=== PATIENT | male | born 1985 | race Caucasian/White ===

== ENCOUNTER 2016-08-12 12:27 | Inpatient (IN) | payer OTHER ==
[2016-08-12 13:42] VITALS: BMI 22.6
--- NOTE | 2016-08-12 16:27 | HP ---
CIWA Score - CIWA Score Nausea/Vomitin-No Nausea/No Vomiting Muscle Tremors: 4-Moderate,w/Arms Extend Anxiety: 4-Mod. Anxious/Guarded Agitation: 4-Moderately Restless Paroxysmal Sweats: 2 Orientation: 1-Uncertain about Date Tacttile Disturbances: 0-None Auditory Disturbances: 0-None Visual Disturbances: 0-None Headache: 3-Moderate CIWA-Ar Total Score: 18 Admission ROS S - HPI Chief Complaint: withdrawal sx Allergies/Adverse Reactions: Allergies Allergy/AdvReac Type Severity Reaction Status Date / Time No Known Allergies Allergy Verified 08/12/16 14:55 History of Present Illness: 31 years old male with long history of alcohol nicotine dependence, has diabetes ii, seizure = last episode 08/11/16 treated at [facility] er , pancreatitis last episode 2015, blurred vision both related to diabetes ii, neuropathy both legs related to diabetes, upper teeth bridge, denies mental illness is admitted to detox Exam Limitations: No Limitations - Ebola screening Have you traveled outside of the country in the last 21 days: No Have you had contact with anyone from an Ebola affected area: No Have you been sick,other than usual withdrawal symptoms: No Do you have a fever: No - Review of Systems Constitutional: Chills, Loss of Appetite, Changes in sleep, Unexplained wgt Loss EENT: reports: Blurred Vision (related to diabetes ii), Dental Problems (upper bridge) Respiratory: reports: No Symptoms reported Cardiac: reports: Palpitations GI: reports: Nausea, Poor Appetite, Poor Fluid Intake, Abdominal cramping : reports: No Symptoms Reported Musculoskeletal: reports: Joint Pain, Muscle Pain Integumentary: reports: No Symptoms Reported Neuro: reports: Seizure, Tremors Endocrine: reports: No Symptoms Reported Hematology: reports: No Symptoms Reported Psychiatric: reports: Judgement Intact, Mood/Affect Appropiate Other Systems: Reviewed and Negative Patient History - Patient Medical History Hx Anemia: No Hx Asthma: No Hx Chronic Obstructive Pulmonary Disease (COPD): No Hx Cancer: No Hx Cardiac Disorders: No Hx Congestive Heart Failure: No Hx Hypertension: No Hx Hypercholesterolemia: No Hx Pacemaker: No HX Cerebrovascular Accident: No Hx Seizures: Yes (alcohol related-last episode was yesterday, 08/11/2015) Hx Dementia: No Hx Diabetes: Yes (currently not on treatment) Hx Gastrointestinal Disorders: No Hx Liver Disease: No Hx Genitourinary Disorders: No Hx Sexually Transmitted Disorders: No Hx Renal Disease (ESRD): No Hx Thyroid Disease: No Hx Human Immunodeficiency Virus (HIV): No Hx Hepatitis C: No Hx Depression: No Hx Suicide Attempt: No Hx Bipolar Disorder: No Hx Schizophrenia: No - Patient Surgical History Past Surgical History: No Hx Neurologic Surgery: No Hx Cataract Extraction: No Hx Cardiac Surgery: No Hx Lung Surgery: No Hx Breast Surgery: No Hx Breast Biopsy: No Hx Abdominal Surgery: No Hx Appendectomy: No Hx Cholecystectomy: No Hx Genitourinary Surgery: No Hx Orthopedic Surgery: No - PPD History Previous Implant?: Yes Documented Results: Negative w/o proof Implanted On Prior [facility] Admission?: No PPD to be Administered?: Yes - Smoking Cessation Smoking history: Current every day smoker Have you smoked in the past 12 months: Yes Aproximately how many cigarettes per day: 5 Hx Chewing Tobacco Use: No Initiated information on smoking cessation: Yes 'Breaking Loose' booklet given: 08/12/16 - Substance & Tx. History Hx Alcohol Use: Yes Hx Substance Use: No Substance Use Type: Alcohol Hx Substance Use Treatment: Yes - Substances Abused Alcohol-beer Route: Oral Frequency: Daily Amount used: 1 case Age of first use: 12 Date of Last Use: 08/11/16 Family Disease History - Family Disease History Family Disease History: CA: Father (throat ) Admission Physical Exam S - Vital Signs Vital Signs: Vital Signs - 24 hr 08/12/16 13:41 Temperature 98.2 F Pulse Rate 99 H Respiratory 18 Rate Blood Pressure 114/96 - Physical General Appearance: Yes: Appropriately Dressed, Moderate Distress, Alcohol on Breath, Thin, Tremorous, Irritable, Sweating, Anxious HEENTM: Yes: Hearing grossly Normal, Normal ENT Inspection, Normocephalic, Normal Voice Respiratory: Yes: Chest Non-Tender, Lungs Clear, Normal Breath Sounds, No Respiratory Distress, No Accessory Muscle Use Neck: Yes: Supple, Trachea in good position Breast: Yes: Breasts Symetrical Cardiology: Yes: Regular Rhythm, S1, S2, Tachycardia Abdominal: Yes: Non Tender, Soft Genitourinary: Yes: Within Normal Limits Back: Yes: Normal Inspection Musculoskeletal: Yes: full range of Motion, Gait Steady, Muscle Pain Extremities: Yes: Normal Range of Motion, Non-Tender, Tremors Neurological: Yes: Alert, Motor Strength 5/5, Normal Mood/Affect, Disoriented ( to time) Integumentary: Yes: Warm, Clammy Lymphatic: Yes: Within Normal Limits - Diagnostic (1) Seizure Current Visit: Yes Status: Chronic Qualifiers: Convulsion type: unspecified Qualified Code(s): R56.9 - Unspecified convulsions Comment: since child, no oral medication, no treatment, last episode 08/11/16 treated at [facility], released for alcohol detox (2) Alcohol dependence with uncomplicated withdrawal Current Visit: Yes Status: Acute (3) Nicotine dependence Current Visit: Yes Status: Acute Qualifiers: Nicotine product type: cigarettes Substance use status: in withdrawal Qualified Code(s): F17.213 - Nicotine dependence, cigarettes, with withdrawal (4) Diabetes mellitus, type II, insulin dependent Current Visit: Yes Status: Chronic Comment: since 2014, treated with unknown name nor dosage of insulin, last dose "long time ago" (5) Pancreatitis, chronic Current Visit: Yes Status: Chronic Qualifiers: Pancreatitis type: other Qualified Code(s): K86.1 - Other chronic pancreatitis Comment: alcohol induced, last episode 2016 (6) Weight loss Current Visit: Yes Status: Acute Comment: glucerna Cleared for Admission [facility] - Detox or Rehab [facility] Level of Care: Medically Managed Detox Regimen/Protocol: Librium [facility] Breath Alcohol Content Breath Alcohol Content: 0.124 Urine Drug Screen - Results Drug Screen Negative: Yes
[2016-08-12] MEDS ORDERED: MAG HYDROX/AL HYDROX/SIMETH 30 ML UNIT-DOSE CUP PO PRN (16:31)
[2016-08-12] MEDS ORDERED: NICOTINE POLACRILEX 2 MG GUM BUC PRN (16:31)
[2016-08-12] MEDS ORDERED: MENTHOL/PHENOL 1 EACH UD MM PRN (16:31)
[2016-08-12] MEDS ORDERED: P-EPHED 60MG/TRIPROLIDI 2.5MG TABLET PO PRN (16:31)
[2016-08-12] MEDS ORDERED: IBUPROFEN 400 MG TABLET (FP) PO PRN (16:31)
[2016-08-12] MEDS ORDERED: chlordiazePOXIDE HCL 25 MG CAPSULE PO PRN (16:31)
[2016-08-12] MEDS ORDERED: hydrOXYzine PAMOATE 50 MG CAPSULE (FP) PO PRN (16:31)
[2016-08-12] MEDS ORDERED: guaiFENesin/D-METHORPHAN HB 10 ML UNIT-DOSE CUPS PO PRN (16:31)
[2016-08-12] MEDS ORDERED: ACETAMINOPHEN 325 MG TABLET (FP) PO PRN (16:31)
[2016-08-12] MEDS ORDERED: MAGNESIUM HYDROX 2400MG/30ML ORAL SUSPENSION 30 ML CUP PO PRN (16:31)
[2016-08-12] MEDS ORDERED: MAGNESIUM CITRATE 300 ML BOTTLE PO PRN (16:31)
[2016-08-12] MEDS ORDERED: LOPERAMIDE HCL 2 MG CAPSULE PO PRN (16:31)
[2016-08-12] MEDS ORDERED: chlordiazePOXIDE HCL 25 MG CAPSULE PO ONE (17:30)
[2016-08-12] MEDS ORDERED: INSULIN (NOVOLOG) ASPART 100 UNITS/ML 10ML VIAL ONE (17:47)
[2016-08-12] MEDS: INSULIN SLIDING SCALE (NOVOLOG) 1 VIAL SQ SCH ×2 (17:58→22:42)
[2016-08-12 21:53] LABS: URINE APPEARANCE CLEAR; URINE BILIRUBIN NEGATIVE (NEGATIVE); URINE BLOOD NEGATIVE (NEGATIVE); URINE COLOR LTYELLOW; URINE GLUCOSE (UA) 2+ (NEGATIVE); URINE KETONE 1+ (NEGATIVE); URINE LEUK ESTERASE NEGATIVE (NEGATIVE); URINE NITRITE NEGATIVE (NEGATIVE); URINE PROTEIN NEGATIVE (NEGATIVE); URINE UROBILINOGEN NEGATIVE E.U./dl (0.2-1.0)
[2016-08-12] MEDS: diphenhydrAMINE HCL 50 MG CAPSULE PO PRN (22:08)
[2016-08-12] MEDS: chlordiazePOXIDE HCL 25 MG CAPSULE PO SCH (22:08)
[2016-08-12] MEDS: THIAMINE HCL 100 MG TABLET (FP) PO SCH (22:08)
[2016-08-13] MEDS: chlordiazePOXIDE HCL 25 MG CAPSULE PO SCH ×4 (05:08→22:16)
[2016-08-13] MEDS ORDERED: INSULIN (NOVOLOG) ASPART 100 UNITS/ML 10ML VIAL ONE ×4 (08:55→22:15)
[2016-08-13] MEDS: INSULIN SLIDING SCALE (NOVOLOG) 1 VIAL SQ SCH ×4 (09:01→22:16)
[2016-08-13 09:31] LABS: MCH 34.1 pg (25.7-33.7); MCHC 33.7 g/dl (32.0-35.9); MEAN CELL VOLUME 101.3 fl (80-96); MEAN PLT VOLUME 9.1 fl (7.5-11.1); PLATELET COUNT 93 K/MM3 (134-434); RDW 15.7 % (11.9-15.9); WHITE BLOOD COUNT 3.1 K/mm3 (4.0-10.0)
[2016-08-13 09:58] LABS: ALBUMIN 3.9 g/dl (3.4-5.0); ALK PHOS 146 U/L (45-117); ANION GAP 15 (8-16); BILIRUBIN,TOTAL 0.6 mg/dL (0.2-1.0); CO2 23 mmol/L (21-32); CREATININE 0.6 mg/dL (0.7-1.3); GLUCOSE,RANDOM 235 mg/dL (74-106); SGOT/AST 237 U/L (15-37); SGPT/ALT 155 U/L (12-78); TOT PROT 7.1 g/dl (6.4-8.2)
--- NOTE | 2016-08-13 10:38 | EKG ---
Test Reason : Blood Pressure : / mmHG Vent. Rate : 080 BPM Atrial Rate : 080 BPM P-R Int : 176 ms QRS Dur : 114 ms QT Int : 402 ms P-R-T Axes : 064 075 047 degrees QTc Int : 463 ms NORMAL SINUS RHYTHM NORMAL ECG NO PREVIOUS ECGS AVAILABLE Confirmed by MARGARET OTERO MD ([id number]) on 08/13/2016 10:38:15 AM Referred By: J Carlos Sin Confirmed By:MARGARET OTERO MD
[2016-08-13] MEDS: NICOTINE 14 MG/24 HOURS TOPICAL PATCH TD SCH (10:58)
[2016-08-13] MEDS: PRENATAL VITAMINS W/ FOLIC ACID TABLET (FP) PO SCH (10:58)
[2016-08-13 12:09] LABS: HIV 1 & 2 AB NEGATIVE; HIV 1 AGp24 NEGATIVE
--- NOTE | 2016-08-13 13:04 | PN ---
[facility] CIWA - CIWA Score Nausea/Vomitin-No Nausea/No Vomiting Muscle Tremors: 4-Moderate,w/Arms Extend Anxiety: 4-Mod. Anxious/Guarded Agitation: 4-Moderately Restless Paroxysmal Sweats: 3 Orientation: 0-Oriented Tacttile Disturbances: 0-None Auditory Disturbances: 0-None Visual Disturbances: 0-None Headache: 0-None Present CIWA-Ar Total Score: 15 B[facility] Progress Note (SOAP) Subjective: shakes sweats interrupted sleep agitation Objective: 08/13/16 13:02 Vital Signs Temperature 98.1 F 08/13/16 10:05 Pulse Rate 123 H 08/13/16 10:05 Respiratory Rate 16 08/13/16 10:05 Blood Pressure 126/85 08/13/16 10:05 O2 Sat by Pulse Oximetry (%) Laboratory Tests 08/12/16 08/12/16 08/12/16 06:30 20:30 22:03 WBC RBC Hgb Hct MCV MCHC RDW Plt Count MPV Sodium Potassium Chloride Carbon Dioxide Anion Gap BUN Creatinine Creat Clearance w eGFR POC Glucometer 104 Random Glucose Calcium Total Bilirubin AST ALT Alkaline Phosphatase Total Protein Albumin Urine Color Ltyellow Urine Appearance Clear Urine pH 6.0 Ur Specific [place] 1.011 Urine Protein Negative Urine Glucose (UA) 2+ H Urine Ketones 1+ H Urine Blood Negative Urine Nitrite Negative Urine Bilirubin Negative Urine Urobilinogen Negative Ur Leukocyte Esterase Negative HIV 1&2 Antibody Screen Negative HIV P24 Antigen Negative 08/13/16 08/13/16 08/13/16 05:30 05:30 06:45 WBC 3.1 L D RBC 3.91 L Hgb 13.4 D Hct 39.6 MCV 101.3 H MCHC 33.7 RDW 15.7 D Plt Count 93 L D MPV 9.1 D Sodium 135 L Potassium 3.6 Chloride 97 L Carbon Dioxide 23 Anion Gap 15 BUN 4 L D Creatinine 0.6 L D Creat Clearance w eGFR > 60 POC Glucometer 239 Random Glucose 235 H D Calcium 8.0 L Total Bilirubin 0.6 AST 237 H D ALT 155 H D Alkaline Phosphatase 146 H Total Protein 7.1 Albumin 3.9 Urine Color Urine Appearance Urine pH Ur Specific [place] Urine Protein Urine Glucose (UA) Urine Ketones Urine Blood Urine Nitrite Urine Bilirubin Urine Urobilinogen Ur Leukocyte Esterase HIV 1&2 Antibody Screen HIV P24 Antigen 08/13/16 11:01 WBC RBC Hgb Hct MCV MCHC RDW Plt Count MPV Sodium Potassium Chloride Carbon Dioxide Anion Gap BUN Creatinine Creat Clearance w eGFR POC Glucometer 295 Random Glucose Calcium Total Bilirubin AST ALT Alkaline Phosphatase Total Protein Albumin Urine Color Urine Appearance Urine pH Ur Specific [place] Urine Protein Urine Glucose (UA) Urine Ketones Urine Blood Urine Nitrite Urine Bilirubin Urine Urobilinogen Ur Leukocyte Esterase HIV 1&2 Antibody Screen HIV P24 Antigen awake/alert ambulating no acute distress Assessment: 08/13/16 13:03 withdrawal sx Plan: continue detox increase fluids
[2016-08-13] MEDS: cloNIDine HCL 0.1 MG TABLET PO SCH (22:15)
[2016-08-13] MEDS: THIAMINE HCL 100 MG TABLET (FP) PO SCH (22:15)
[2016-08-13] MEDS: diphenhydrAMINE HCL 50 MG CAPSULE PO PRN (22:16)
[2016-08-14] MEDS: chlordiazePOXIDE HCL 25 MG CAPSULE PO SCH ×3 (05:29→17:14)
[2016-08-14] MEDS: INSULIN SLIDING SCALE (NOVOLOG) 1 VIAL SQ SCH ×4 (07:57→22:18)
[2016-08-14] MEDS: NICOTINE 14 MG/24 HOURS TOPICAL PATCH TD SCH (10:16)
[2016-08-14] MEDS: cloNIDine HCL 0.1 MG TABLET PO SCH ×2 (10:16→22:13)
[2016-08-14] MEDS: PRENATAL VITAMINS W/ FOLIC ACID TABLET (FP) PO SCH (10:16)
--- NOTE | 2016-08-14 11:21 | PN ---
S CIWA - CIWA Score Nausea/Vomitin Muscle Tremors: 3 Anxiety: 3 Agitation: 3 Paroxysmal Sweats: 1-Minimal Palms Moist Orientation: 0-Oriented Tacttile Disturbances: 1-Very Mild Itch/Numbness Auditory Disturbances: 1-Very Mild Visual Disturbances: 1-Very Mild Sensitivity Headache: 2-Mild CIWA-Ar Total Score: 18 BHS Progress Note (SOAP) Subjective: ALERT,IRRITABLE,ANXIOUS,TREMOR,PAIN IN THE BODY Objective: 08/14/16 11:19 Vital Signs Temperature 97.2 F L 08/14/16 10:27 Pulse Rate 123 H 08/14/16 10:27 Respiratory Rate 16 08/14/16 10:27 Blood Pressure 99/66 08/14/16 10:27 O2 Sat by Pulse Oximetry (%) EKG NSR,NORMAL ECG Laboratory Last Values WBC 3.1 K/mm3 (4.0-10.0) L D 08/13/16 05:30 RBC 3.91 M/mm3 (4.00-5.60) L 08/13/16 05:30 Hgb 13.4 GM/dL (11.7-16.9) D 08/13/16 05:30 Hct 39.6 % (35.4-49) 08/13/16 05:30 MCV 101.3 fl (80-96) H 08/13/16 05:30 MCHC 33.7 g/dl (32.0-35.9) 08/13/16 05:30 RDW 15.7 % (11.9-15.9) D 08/13/16 05:30 Plt Count 93 K/MM3 (134-434) L D 08/13/16 05:30 MPV 9.1 fl (7.5-11.1) D 08/13/16 05:30 Sodium 135 mmol/L (136-145) L 08/13/16 05:30 Potassium 3.6 mmol/L (3.5-5.1) 08/13/16 05:30 Chloride 97 mmol/L (98-107) L 08/13/16 05:30 Carbon Dioxide 23 mmol/L (21-32) 08/13/16 05:30 Anion Gap 15 (8-16) 08/13/16 05:30 BUN 4 mg/dL (7-18) L D 08/13/16 05:30 Creatinine 0.6 mg/dL (0.7-1.3) L D 08/13/16 05:30 Creat Clearance w eGFR > 60 (>60) 08/13/16 05:30 POC Glucometer 126 UNITS (()) 08/14/16 05:28 Random Glucose 235 mg/dL (74-106) H D 08/13/16 05:30 Calcium 8.0 mg/dL (8.5-10.1) L 08/13/16 05:30 Total Bilirubin 0.6 mg/dL (0.2-1.0) 08/13/16 05:30 AST 237 U/L (15-37) H D 08/13/16 05:30 ALT 155 U/L (12-78) H D 08/13/16 05:30 Alkaline Phosphatase 146 U/L (45-117) H 08/13/16 05:30 Total Protein 7.1 g/dl (6.4-8.2) 08/13/16 05:30 Albumin 3.9 g/dl (3.4-5.0) 08/13/16 05:30 Urine Color Ltyellow 08/12/16 20:30 Urine Appearance Clear 08/12/16 20:30 Urine pH 6.0 (5.0-8.0) 08/12/16 20:30 Ur Specific [place] 1.011 (1.001-1.035) 08/12/16 20:30 Urine Protein Negative (NEGATIVE) 08/12/16 20:30 Urine Glucose (UA) 2+ (NEGATIVE) H 08/12/16 20:30 Urine Ketones 1+ (NEGATIVE) H 08/12/16 20:30 Urine Blood Negative (NEGATIVE) 08/12/16 20:30 Urine Nitrite Negative (NEGATIVE) 08/12/16 20:30 Urine Bilirubin Negative (NEGATIVE) 08/12/16 20:30 Urine Urobilinogen Negative E.U./dl (0.2-1.0) 08/12/16 20:30 Ur Leukocyte Esterase Negative (NEGATIVE) 08/12/16 20:30 RPR Titer Nonreactive (NONREACTIVE) 08/13/16 05:30 HIV 1&2 Antibody Screen Negative 08/12/16 06:30 HIV P24 Antigen Negative 08/12/16 06:30 Assessment: 08/14/16 11:20 WITHDRAWAL SYMPTOM Plan: CONTINUE DETOX
[2016-08-14] MEDS ORDERED: INSULIN (NOVOLOG) ASPART 100 UNITS/ML 10ML VIAL ONE ×3 (11:48→22:17)
[2016-08-14] MEDS: chlordiazePOXIDE 5 MG CAPSULE PO SCH (22:13)
[2016-08-14] MEDS: THIAMINE HCL 100 MG TABLET (FP) PO SCH (22:13)
[2016-08-14] MEDS: diphenhydrAMINE HCL 50 MG CAPSULE PO PRN (22:14)
[2016-08-15] MEDS: chlordiazePOXIDE 5 MG CAPSULE PO SCH ×3 (05:46→17:58)
[2016-08-15] MEDS ORDERED: INSULIN (NOVOLOG) ASPART 100 UNITS/ML 10ML VIAL ONE ×4 (08:27→22:41)
[2016-08-15] MEDS: INSULIN SLIDING SCALE (NOVOLOG) 1 VIAL SQ SCH ×4 (08:31→22:43)
--- NOTE | 2016-08-15 10:32 | PN ---
S Progress Note (SOAP) Subjective: ALERT,IRRITABLE,ANXIOUS,INTERRUPTED SLEEP Objective: 08/15/16 10:30 Vital Signs Temperature 98.2 F 08/15/16 09:37 Pulse Rate 111 H 08/15/16 09:37 Respiratory Rate 18 08/15/16 09:37 Blood Pressure 117/66 08/15/16 09:37 O2 Sat by Pulse Oximetry (%) Assessment: 08/15/16 10:31 WITHDRAWAL SYMPTOM Plan: CONTINUE DETOX
[2016-08-15] MEDS: cloNIDine HCL 0.1 MG TABLET PO SCH ×2 (10:38→22:34)
[2016-08-15] MEDS: PRENATAL VITAMINS W/ FOLIC ACID TABLET (FP) PO SCH (10:38)
[2016-08-15] MEDS: NICOTINE 14 MG/24 HOURS TOPICAL PATCH TD SCH (10:39)
[2016-08-15] MEDS: THIAMINE HCL 100 MG TABLET (FP) PO SCH (22:34)
[2016-08-15] MEDS: chlordiazePOXIDE HCL 10 MG CAPSULE PO SCH (22:34)
[2016-08-16] MEDS: chlordiazePOXIDE HCL 10 MG CAPSULE PO SCH ×3 (06:01→17:37)
[2016-08-16] MEDS ORDERED: INSULIN (NOVOLOG) ASPART 100 UNITS/ML 10ML VIAL ONE ×4 (07:44→22:09)
[2016-08-16] MEDS: INSULIN SLIDING SCALE (NOVOLOG) 1 VIAL SQ SCH ×4 (07:46→22:08)
[2016-08-16] MEDS: cloNIDine HCL 0.1 MG TABLET PO SCH ×2 (10:34→22:12)
[2016-08-16] MEDS: PRENATAL VITAMINS W/ FOLIC ACID TABLET (FP) PO SCH (10:34)
[2016-08-16] MEDS: NICOTINE 14 MG/24 HOURS TOPICAL PATCH TD SCH (10:35)
--- NOTE | 2016-08-16 13:12 | PN ---
BHS Progress Note (SOAP) Subjective: sweating,interrupted sleep,restless. Objective: 08/16/16 13:11 Vital Signs - 8 hr 08/16/16 08/16/16 06:55 10:00 Temperature 97.7 F 97.7 F Pulse Rate 65 100 H Respiratory 18 20 Rate Blood Pressure 114/66 96/61 Laboratory Tests 08/12/16 08/12/16 08/12/16 06:30 15:19 20:30 WBC RBC Hgb Hct MCV MCHC RDW Plt Count MPV Sodium Potassium Chloride Carbon Dioxide Anion Gap BUN Creatinine Creat Clearance w eGFR POC Glucometer 274 Random Glucose Calcium Total Bilirubin AST ALT Alkaline Phosphatase Total Protein Albumin Urine Color Ltyellow Urine Appearance Clear Urine pH 6.0 Ur Specific [place] 1.011 Urine Protein Negative Urine Glucose (UA) 2+ H Urine Ketones 1+ H Urine Blood Negative Urine Nitrite Negative Urine Bilirubin Negative Urine Urobilinogen Negative Ur Leukocyte Esterase Negative RPR Titer HIV 1&2 Antibody Screen Negative HIV P24 Antigen Negative 08/12/16 08/13/16 08/13/16 22:03 05:30 05:30 WBC 3.1 L D RBC 3.91 L Hgb 13.4 D Hct 39.6 MCV 101.3 H MCHC 33.7 RDW 15.7 D Plt Count 93 L D MPV 9.1 D Sodium 135 L Potassium 3.6 Chloride 97 L Carbon Dioxide 23 Anion Gap 15 BUN 4 L D Creatinine 0.6 L D Creat Clearance w eGFR > 60 POC Glucometer 104 Random Glucose 235 H D Calcium 8.0 L Total Bilirubin 0.6 AST 237 H D ALT 155 H D Alkaline Phosphatase 146 H Total Protein 7.1 Albumin 3.9 Urine Color Urine Appearance Urine pH Ur Specific [place] Urine Protein Urine Glucose (UA) Urine Ketones Urine Blood Urine Nitrite Urine Bilirubin Urine Urobilinogen Ur Leukocyte Esterase RPR Titer HIV 1&2 Antibody Screen HIV P24 Antigen 08/13/16 08/13/16 08/13/16 05:30 06:45 11:01 WBC RBC Hgb Hct MCV MCHC RDW Plt Count MPV Sodium Potassium Chloride Carbon Dioxide Anion Gap BUN Creatinine Creat Clearance w eGFR POC Glucometer 239 295 Random Glucose Calcium Total Bilirubin AST ALT Alkaline Phosphatase Total Protein Albumin Urine Color Urine Appearance Urine pH Ur Specific [place] Urine Protein Urine Glucose (UA) Urine Ketones Urine Blood Urine Nitrite Urine Bilirubin Urine Urobilinogen Ur Leukocyte Esterase RPR Titer Nonreactive HIV 1&2 Antibody Screen HIV P24 Antigen 08/13/16 08/13/16 08/13/16 16:39 22:07 22:10 WBC RBC Hgb Hct MCV MCHC RDW Plt Count MPV Sodium Potassium Chloride Carbon Dioxide Anion Gap BUN Creatinine Creat Clearance w eGFR POC Glucometer 236 411 417 Random Glucose Calcium Total Bilirubin AST ALT Alkaline Phosphatase Total Protein Albumin Urine Color Urine Appearance Urine pH Ur Specific [place] Urine Protein Urine Glucose (UA) Urine Ketones Urine Blood Urine Nitrite Urine Bilirubin Urine Urobilinogen Ur Leukocyte Esterase RPR Titer HIV 1&2 Antibody Screen HIV P24 Antigen 08/14/16 08/14/16 08/14/16 05:28 11:39 16:29 WBC RBC Hgb Hct MCV MCHC RDW Plt Count MPV Sodium Potassium Chloride Carbon Dioxide Anion Gap BUN Creatinine Creat Clearance w eGFR POC Glucometer 126 431 255 Random Glucose Calcium Total Bilirubin AST ALT Alkaline Phosphatase Total Protein Albumin Urine Color Urine Appearance Urine pH Ur Specific [place] Urine Protein Urine Glucose (UA) Urine Ketones Urine Blood Urine Nitrite Urine Bilirubin Urine Urobilinogen Ur Leukocyte Esterase RPR Titer HIV 1&2 Antibody Screen HIV P24 Antigen 08/14/16 08/15/16 08/15/16 22:08 05:46 11:33 WBC RBC Hgb Hct MCV MCHC RDW Plt Count MPV Sodium Potassium Chloride Carbon Dioxide Anion Gap BUN Creatinine Creat Clearance w eGFR POC Glucometer 330 233 470 Random Glucose Calcium Total Bilirubin AST ALT Alkaline Phosphatase Total Protein Albumin Urine Color Urine Appearance Urine pH Ur Specific [place] Urine Protein Urine Glucose (UA) Urine Ketones Urine Blood Urine Nitrite Urine Bilirubin Urine Urobilinogen Ur Leukocyte Esterase RPR Titer HIV 1&2 Antibody Screen HIV P24 Antigen 08/15/16 08/16/16 16:35 06:03 WBC RBC Hgb Hct MCV MCHC RDW Plt Count MPV Sodium Potassium Chloride Carbon Dioxide Anion Gap BUN Creatinine Creat Clearance w eGFR POC Glucometer 158 278 Random Glucose Calcium Total Bilirubin AST ALT Alkaline Phosphatase Total Protein Albumin Urine Color Urine Appearance Urine pH Ur Specific [place] Urine Protein Urine Glucose (UA) Urine Ketones Urine Blood Urine Nitrite Urine Bilirubin Urine Urobilinogen Ur Leukocyte Esterase RPR Titer HIV 1&2 Antibody Screen HIV P24 Antigen labs noted Assessment: 08/16/16 13:11 Withdrawal sx. Plan: Continue detox
[2016-08-16] MEDS: THIAMINE HCL 100 MG TABLET (FP) PO SCH (22:10)
[2016-08-17 05:49] VITALS: BP 134/78; PULSE 77; TEMP 97.3
[2016-08-17] MEDS ORDERED: INSULIN (NOVOLOG) ASPART 100 UNITS/ML 10ML VIAL ONE (07:33)
[2016-08-17] MEDS: INSULIN SLIDING SCALE (NOVOLOG) 1 VIAL SQ SCH (07:45)
--- NOTE | 2016-08-17 09:04 | DS ---
[facility] Detox Discharge Summary Admission Date: 08/12/16 Discharge Date: 08/17/16 - History Present History: Alcohol Dependence - Physical Exam Results Vital Signs: Vital Signs Temperature 97.3 F L 08/17/16 05:48 Pulse Rate 77 08/17/16 05:48 Respiratory Rate 18 08/17/16 05:48 Blood Pressure 134/78 08/17/16 05:48 O2 Sat by Pulse Oximetry (%) - Treatment Hospital Course: Detox Protocol Followed, Detoxed Safely, Responded well, Discharged Condition Good - Medication Discharge Medications: Ambulatory Orders No Home Medications 0 dose .ROUTE UTDICT 10/05/13 - Diagnosis (1) Alcohol dependence with uncomplicated withdrawal Current Visit: Yes Status: Chronic (2) Nicotine dependence Current Visit: Yes Status: Chronic Qualifiers: Nicotine product type: cigarettes Substance use status: in withdrawal Qualified Code(s): F17.213 - Nicotine dependence, cigarettes, with withdrawal (3) Diabetes mellitus, type II, insulin dependent Current Visit: Yes Status: Chronic (4) Pancreatitis, chronic Current Visit: Yes Status: Chronic Qualifiers: Pancreatitis type: other Qualified Code(s): K86.1 - Other chronic pancreatitis (5) Seizure Current Visit: Yes Status: Chronic Qualifiers: Convulsion type: unspecified Qualified Code(s): R56.9 - Unspecified convulsions (6) Alcohol abuse Current Visit: Yes Status: Chronic (7) Elevated liver enzymes Current Visit: Yes Status: Chronic - AMA Did Patient Leave Against Medical Advice: No
== END 2016-08-17 09:55 | disposition home or self-care (01) | DRG 775 ==
LOC: YASAS 12:27 → Y6N 15:54
PROVIDERS: ADMIT Internal Medicine; ATTEND Internal Medicine
PROC: HZ2ZZZZ Detoxification Services for Substance Abuse Treatment (ICD-10-PCS; principal; 2016-08-17)
DX: F10.230 Alcohol dependence with withdrawal, uncomplicated (principal); F17.213 Nicotine dependence, cigarettes, with withdrawal; E11.9 Type 2 diabetes mellitus without complications; Z79.4 Long term (current) use of insulin; K86.1 Other chronic pancreatitis; R56.9 Unspecified convulsions; R94.5 Abnormal results of liver function studies; R63.4 Abnormal weight loss; Z68.22 Body mass index [BMI] 22.0-22.9, adult
CPT/HCPCS: 36415; 80053; 81003; 85027; 86593; 87389; 93005; 93010